=== PATIENT | male | born 1970 | race Caucasian/White ===

== ENCOUNTER 2024-08-31 12:02 | Emergency (ER) | payer OTHER, SELFPAY ==
--- NOTE | 2024-08-31 12:06 | ED_ITS ---
HPI - General Adult General Chief complaint: Dizziness Stated complaint: Dizzy Time Seen by Provider: 08/31/24 12:32 Mode of arrival: ambulatory Limitations: no limitations History of Present Illness HPI narrative: 53 year old male presents with concern for 3 day history of lightheadedness and diarrhea. He reports he just moved here from [place] 2 weeks ago, he had a thyroidectomy 1 month ago. He has been on Synthroid. He reports he took his 1st dose of Cymbalta 3 days ago and the symptoms started so he did not take anymore Cymbalta. He reports he started having loose stools about 4 times a day. He denies nausea, vomiting, fever, upper respiratory symptoms. MD complaint: Lightheadedness Related Data Home Medications ?Medication ?Instructions ?Recorded ?Confirmed ?Last Taken ?Type duloxetine 60 mg capsule,delayed mg PO 08/31/24 Unknown History release levothyroxine 125 mcg tablet mcg 08/31/24 Unknown History methocarbamol 500 mg tablet mg 08/31/24 Unknown History Allergies Allergy/AdvReac Type Severity Reaction Status Date / Time Penicillins Allergy Unknown Unknown Verified 08/31/24 12:24 Review of Systems Review of Systems: CONSTITUTIONAL: Report malaise, chills, sweats. Denies fever. EYES: Denies visual changes, redness, or discharge. ENT: Denies rhinorrhea, congestion, sinus pain, otalgia or sore throat. CARDIOVASCULAR: Denies chest pain, palpitations, or edema. RESPIRATORY: Denies cough or dyspnea. GASTROINTESTINAL: Denies abdominal pain, nausea, vomiting. Reports loose stools GENITOURINARY: Denies dysuria or hematuria. SKIN: Denies rash or itching. MUSCULOSKELETAL: Denies back pain, joint pain, or myalgia. Reports chronic neck pain NEUROLOGIC: Denies numbness, weakness, or headache. Reports lightheadedness PSYCHIATRIC: Denies anxiety or depression. All systems reviewed & are unremarkable except as noted in HPI and below PMFSH Comments At time of signature, agree with nursing past medical, surgical, social and family history. There is no relevant family history pertinent to the presenting complaint Exam Narrative: GENERAL: Nontoxic-appearing, well-nourished, and in no acute distress. HEAD: Normocephalic, atraumatic. EYES: PERRLA, sclera clear, and EOMI. ENT: Nares clear. Mucous membranes moist. NECK: Supple. CHEST: No respiratory distress. Speaks in full sentences. HEART: Regular rate and rhythm. EXTREMITIES: Normal range of motion. No edema. Normal strength and sensation. SKIN: Warm, dry, no visible rash. NEURO: Alert and oriented x3. PSYCH: Normal mood and affect Course Course Emergency Course: Patient is aware of, understands and agrees to transfer to emergency depart. Patient agrees to proceed directly to the emergency department. Portions of this record may have been created with voice recognition software Level of Care: Express Care Visit Vital Signs Vital signs: Reviewed. Transfer Transfered to: [facility] Transportation: Other (Private vehicle) Transfer rationale: Lightheadedness Transfer comments: [facility] Medical Decision Making MDM Narrative Medical decision making narrative: The patient was evaluated by myself in the express care. History is obtained from patient who is an independent historian and physical exam was performed. ? Exam findings show no acute concerns or changes; patient is non-toxic appearing and is in no distress. ? Critical Care Time Critical Care Time Critical Care Time: No Discharge Plan Discharge Clinical Impression: Lightheadedness Patient Disposition: Acute Care Hospital Condition: Stable Patient Language: Algerian Follow-up/Referrals: UNKNOWN,DOCTOR [Non-Staff] - Time of Disposition: 12:50
--- OUTSIDE RECORDS SUMMARY | 2024-08-31 12:09 | XMS_ITS | Data Portability ---
Author Organization [place] - [facility], [facility] Address [address] [facility] [address] [place] [address] Assessment Encounter Date Assessment Date Assessment LastModified by Organization Details LastModified Time 01/09/2021 01/09/2021 x-ray images of the cervical spine 3 views obtained at [facility] on 01/05/2021 were reviewed and interpreted by me, demonstrating: straightening of the cervical lordosis, C6-C7 disc space narrowing x-ray images of the left shoulder 3 views obtained at [facility] on 01/05/2021 were reviewed and interpreted by me, demonstrating: unremarkable x-ray images of the left elbow 3 views obtained at [facility] on 01/05/2021 were reviewed and interpreted by me, demonstrating: unremarkable Assessment: 50-year-old male who presents with new complaint of neck pain radiating down the left shoulder and upper extremity with paresthesias in the hand. Examination reveals decreased left triceps reflex and decreased sensation to light touch in the left hand. He has been treated with a course of oral steroids, intramuscular steroid injection, diclofenac, naproxen, cyclobenzaprine, and hydrocodone without significant benefit. There appears to be an acute cervical radiculopathy. Prior treatments: Intramuscular steroid injection, oral steroid taper, diclofenac, cyclobenzaprine, naproxen, hydrocodone Plan: 1. referral to physical therapy 2. home exercise program 3. MRI cervical spine to evaluate for acute disc herniation and source of radiculopathy; there are neurologic deficits noted on physical exam 4. start Medrol Dosepak followed by celecoxib as needed, refill cyclobenzaprine, change hydrocodone to tramadol Imaging results were reviewed with the patient. Medication options were discussed in detail, including appropriate indications, contraindications , risks, and adverse effects. All questions were answered. Follow-up: after MRI; patient indicates he would like to follow-up with a physician at the [place] office Additional Clinical Information: This note was dictated using voice recognition software. Portions of the note may contain grammatical errors due to voice recognition and auto-correct technology. Variances in spelling and vocabulary are possible but unintentional, and not all errors may be seen before the note is closed. Any admissions advisor errors would not constitute a change in patient care. Not available 01/09/2021 11:39:51 01/19/2021 01/19/2021 MRI images of th e cervical spine without contrast obtained at [facility] on 01/12/2021 were reviewed and interpreted by me, demonstrating: significant disc herniation at C6-C7 with resulting in severe left foraminal stenosis and impingement of the left C7 nerve root see full report for further details Assessment: 50-year-old male who returns with unchanged neck pain radiating down the left shoulder and upper extremity with paresthesias in the hand. since last visit, he completed Medrol Dosepak with no significant improvement. MRI was completed, as above. History in brief from prior encounters: Examination reveals decreased left triceps reflex and decreased sensation to light touch in the left hand. He has been treated with a course of oral steroids, intramuscular steroid injection, diclofenac, naproxen, cyclobenzaprine, and hydrocodone without significant benefit. There appears to be an acute cervical radiculopathy. Prior treatments: Intramuscular steroid injection, oral steroid taper x2, diclofenac, cyclobenzaprine, naproxen, hydrocodone, Tramadol, celecoxib Plan: 1. proceed with physical therapy 2. C7-T1 interlaminar epidural steroid injection; discussed with him that given the size of the disc herniation, he may not achieve lasting benefit from this and may eventually need surgery 3. referral to spine surgeon for consultation Imaging results were reviewed with the patient. Medication options were discussed in detail, including appropriate indications, contraindications , risks, and adverse effects. All questions were answered. Follow-up: 2 weeks after injection Additional Clinical Information: This note was dictated using voice recognition software. Portions of the note may contain grammatical errors due to voice recognition and auto-correct technology. Variances in spelling and vocabulary are possible but unintentional, and not all errors may be seen before the note is closed. Any admissions advisor errors would not constitute a change in patient care. Not available 01/19/2021 15:44:56 02/03/2021 02/03/2021 PROCEDURE: CERVICAL INTERLAMINAR EPIDURAL STEROID INJECTION AT C7-T1 (21250) PRE-OP DIAGNOSIS: CERVICAL RADICULOPATHY PRE-OP DIAGNOSIS: CERVICAL RADICULOPATHY INDICATION: SIGNIFICANT PAIN UNRESPONSIVE TO CONSERVATIVE MEASURES PROCEDURE IN DETAIL: The patient was made aware of the procedure, how it was to take place and any potential adverse reactions including, but not limited to, a temporary motor block/weakness, bleeding, infection, and allergic reaction. The patient was consented verbally and in writing regarding the above. The patient was transported into the interventional procedure room of the [facility] and asked to lie on the table in prone position. The skin was then prepped, draped, and anesthetized in the usual sterile manner using 3 cc of 1% lidocaine. Using fluoroscopic guidance, the point of skin overlying the interlaminar space specified above was marked. Using fluoroscopic guidance, a 20-gauge 3 inch Tuohy needle was directed towards the interlaminar space mentioned above. Eupb-io-wikaorkyd e was achieved using a syringe containing normal saline. Multiplanar radiographs were used to verify appropriate needle tip position. A small amount of Isovue 200-M was used to obtain a contrast epidurogram. Once appropriate contrast flow was confirmed under live fluoroscopy, a mixture containing 1 cc Dexamethasone Sodium Phosphate (10 mg/cc), 1 cc dexamethasone (4 mg/cc), and 2 cc of 0.9% normal saline was slowly injected. The needles were removed, band-aids were applied and the patient was transported to the recovery area where vital signs were monitored for approximately 15 minutes or until stable. X-RAYS: A/P and contralateral oblique views were obtained showing the needle tip to be in the appropriate interlaminar space. The contrast flowed into the epidural space indicative of successful epidurogram. PLAN: The patient will follow-up with his referring physician in 2 weeks. Not available 02/03/2021 19:10:55 Plan of Treatment Reminders Order Date Submit Date Provider Last Modified By Organization Details Last Modified Time Details Appointments None record ed. Lab None record ed. Referral physic al therap ist referr al - This referr al for rehabi litati on june e treatm ent perfor med by an ATC, OT, PT, or STEEPING PRESS OPERATOR in accord ance with their state practi ce act. 2020 [email or web address] [facility], [address], [place], [address], 17:46:06 physic al therap ist referr al 2020 [email or web address] [facility] [address], Dirk Martínez, [place], [address], 13:52:07 Procedures epidur al steroi d inject ion, cervic al interl aminar (PROC) - C7-T1 ILESI; schedu le first availa ble betwee n [facility] 2020 021 [email or web address] [facility], [address] , [place], [address], 10:19:32 Surgeries None record ed. Imaging MRI, cervic al spine, w/o contra st 2020 [email or web address] [facility], Dirk Martínez, [place], [address], 14:25:41 Medication Orders Medrol (Lavelle) 4 mg tablet s in a dose pack 2020 [id number], [address] [place], [address], 11:24:33 tramad ol 50 mg tablet 2020 [id number], [address] [place], [address], 11:24:34 cyclob enzapr ine 5 mg tablet 2020 021 [id number], [address] [place], [address], 11:24:32 celeco xib 200 mg capsul e 2020 021 [id number], [address] [place] [place], [address], 11:24:32 Patient TargetsNo targets recorded. Patient Instructions Encounter Date Encounter Id Patient Instructions Last Modified By Organization Details Last Modified Time 01/09/2021 [id number] pinched nerve in the neck: care instructions Not available 01/09/2021 11:24:28 neck: exercises Not available 01/09/2021 11:24:28 Reason for Referral Physical Therapist Referral for Cervical radiculopathy Referring Physician: Eamon Kong, [facility] ([phone] Encounter Date: 01/09/2021 Physical Therapist Referral for Cervical radiculopathy This referral for rehabilitation may include treatment performed by an ATC, OT, PT, or STEEPING PRESS OPERATOR in accordance with their state practice act. Referring Physician: Eamon Kong [facility] Encounter Date: 01/19/2021 Results Created Date Observation Date Name Description Value Unit Range Abnormal Flag Note LastModifiedBy Organization Detail LastModifiedTime 01/13/20 21 01/12/2021 cervi fide spine [mric spwoc ] Patien t Name: BRITTNEE MERLYNKaro Torres Date of : 1970 Locati on: [facility] Cervic al Spine [MRI pwoC] HISTOR Y: Cervic al pain and radicu lopath y. COMPAR JEAN: STUDIE S: None availa ble. TECHNI QUE: Multip lanar sequen stefan with T1, interm ediate , T2, and/or T2*-we ighted image contra st. FINDIN GS: GENERA L: Mild cervic al disc degene ration is presen t with modera te loss of disc height at C6-7. A slight upper cervic al kyphos is is presen t and a minima l cervic othora cic curvat ure convex left is also eviden t. No signs of fractu re or osseou s neopla sm are identi fied. C1-2 AND CRANIO CERVIC AL JUNCTI ON: Unrema rkable . C2-3: No disc hernia tion, centra l stenos is, or forami nal stenos is. C3-4: A mild disc bulge causes mild ventra l cord flatte shelby but no signif icant centra l stenos is. The neural forami na are patent bilate rally. C4-5: A minima l disc bulge is presen t. C5-6: A mild disc bulge is noted. The spinal canal remain s normal in calibe r with no mass effect upon the cord identi fied. Uncove rtebra l joint hypert rophy result s in mild bilate ral forami nal narrow ing. C6-7: A modera te left subart icular and forami nal disc extrus ion with slight caudal migrat ion is presen t. The hernia taina disc imping es upon the left C7 nerve root and fills the medial left neural forame n. The spinal canal remain s within normal limits in calibe r. C7-T1: No disc hernia tion, centra l stenos is, or forami nal stenos is. CORD AND INTRAS JESSICA: No cervic al cord or intras jessica lesion s. IMPRES IRWIN: A modera te left subart icular /jaison inal disc extrus ion at C6-7 imping es upon the left C7 nerve root.A mild disc bulge at C3-4 causes mild ventra l cord flatte shelby but no signif icant centra l canal stenos is.Mil d upper cervic al kyphos is and minima l cervic othora cic curvat ure convex left. Electr onical ly signed by: Trae Barnard M.D. (Jan 12, 2021 16:37: 05 CT) [address], [place], [address], 01/19/2021 17:03:02 01/14/20 21 01/05/2021 XR, cervi fide spine , 2 or 3 view No observ ation record ed. BARCODE Not Available 2020 08:28:24 Result Notes None recorded. Problems Name Problem SNOMED Code Status Onset Date Resolution Date Notes Provider Name and Address Organization Details Recorded Time Cervical radiculopat hy 64636315 Active 2020 Eamon Kong MD [address], [place], [address] , [facility] 11:13:20 Problem Notes None recorded. Medical Equipment None Reported. Allergies Allergen ID Allergen Name Allergen Category Reaction Reaction Severity Criticality Documentation Date Start Date Code Code System Note Provider Name and Address Organization Details Recorded Time 125203 Product containin g penicilli n (product) medicatio n Not available Not available Not available 01/08/20212020 59603 8001 SNOMED Not Available Dash Scheduling by [employer] 13:21:22 Medications Name Sig Start Date Stop Date Status Note LastModified by Organization Details LastModified Time celecoxib 200 mg capsule TAKE 1 CAPSULE TWICE A DAY BY ORAL ROUTE NEEDED FOR 30 DAYS. active Not Available Not Available No t Available Medrol (Lavelle) 4 mg tablets in a dose pack Take 1 dose pk by oral route as directed . 2020 active Not Available Not Available Not Avai lable tramadol 50 mg tablet Take 2 tablets twice a day by oral route as needed for 15 days. 2020 active Not Available Not Available Not Avai lable cyclobenzaprine 5 mg tablet Take 1-2 tablets by mouth nightly as needed 2020 active Not Available Not Available Not Avai lable hydrocodone-noam taminophen 2020 active Not Available Not Available Not Avai lable dexamethasone 2020 active Not Available Not Available Not Avai lable cyclobenzaprine 2020 active Not Available Not Available Not Avai lable Vitals Date Recorded Body height Body mass index (BMI) Body weight Provider Name and Address Organization Details Last Updated DateTime 01/09/2021 182.88 cm 26 kg/m2 95055.74 g Chandni [facility] 01/09/2021 11:01:37 Date Recorded Body height Body mass index (BMI) Body weight Provider Name and Address Organization Details Last Updated DateTime 01/19/2021 182.88 cm 26 kg/m2 76001.74 g Chandni [facility] 01/19/2021 15:22:59 Social History Question Answer Notes LastModified by Organizat ion Details LastModified Time Tobacco Smoking Status Former Smoker Chandni Lerma [facility] 01/09/2021 11:01:51 How Much Tobacco Do You Chew? 1/day [email or web address] Information not available 01/09/2021 Which Illicit Or Recreational Drugs Have You Used? No [email or web address] Information not available 01/09/2021 Have You Ever Served In The [employer] [place]? No [email or web address] Information not available 01/09/2021 What Is Your Relationship Status? [email or web address] Information not available 01/09/2021 At What Age Did You Start Smoking Tobacco? 17 [email or web address] Information not available 01/09/2021 How Much Tobacco Do You Smoke? No [email or web address] Information not available 01/09/2021 Sex: Unknown Functional Status Question Answer Note LastModified by Organization D etails LastModified Time What is your level of alcohol consumption? Moderate [email or web address] Information not available 01/09/2021 Mental Status None recorded. Family History Relationship Description Onset Age of this Age Resolved Age Notes LastModified by Organization Details LastModified Time Father Family history of malignant neoplasm 73 74 [email or web address] Not available 11:01:51 Medical History Condition Response High Cholesterol Y Rheumatoid Arthritis Y Asthma Y Past Encounters Encounter ID Performer Location Encounter Start Date Encounter Closed Date Diagnosis/Indication Diagnosis SNOMED-CT Code Diagnosis ICD10 Code Diagnosis Note [id number] Eamon Kong MD [facility] [address] 01/09/2021 10:13:44 01/09/2021 11:27:13 Cervical radiculopathy 67317794 M54.12 [id number] Eamon Kong MD [facility] [address] [place] [address] 01/19/2021 14:37:10 01/19/2021 15:49:29 Cervical radiculopathy 66910700 M54.12 [id number] Eamon Kong MD [facility] [address] [place] [address] 02/03/2021 06:26:34 02/04/2021 08:05:22 Cervical radiculopathy 11890601 M54.12 Health Concerns Section Related Observation LastModified by Organization Detai ls LastModified Time None Recorded Concern Status LastModified by Organization Details LastModified Time None Recorded Advance Directives Directive None Recorded Payers Insurance Date Sequence Insurance Name Policy Number Policy Donovan Covered Member ID Donovan Member ID Guarantor Name 04/09/2024 1 [facility] [id number] Shantell Gamez [id number] Amadeo Gamez 04/09/2024 1 [facility] Amadeo Gamez [id number] Amadeo Gamez Notes Date Note Type Note Provider Name and Address Organization Details Recorded Time 1 text/html SpineReported bypatient.Complaint/Pro blem today:Major pain shoots through my neck down to left elbow and side, depending on what position my neck is in. Hurts more to sit down. Date of injury/accident/onset of problem:Date 01/03/2021 Symptoms (Select any that apply):Neck Pain The pain has been present for:6.0 days Indicate pain level:Pain level today: 8/10; Level of pain on worst day: 10/10 Is the pain:Comes and goes Is the pain:Sharp; Stabbing; Burning Does the pain go down the arms or legs?Yes: If Yes, select any that apply:; Pain goes down your left arm Is the pain worse when:sitting; lying down; in the morning Is the pain better when:standing Does the pain wake you up at night?Yes Signs and Symptomsexperience numbness in your right arm; experience numbness in you left arm; experience weakness in your left arm; none Medications:No Have you had physical therapy?No Have you had special needs caregiver?No Have you had Home Exercises?No Have you had injections for spinal pain?No Have you had spine surgery?no; Dr Swanson Tests you have had:x ray Injury: Did you have an injury to cause pain?No; Work Related? Have you had Neck Pain/Arm Numbness/Arm Weakness BEFORE this episode?Yes; If Yes, when? 5 years ago Have you had Back Pain/Leg Numbness/Leg Weakness BEFORE this episode?Yes; If Yes, when? 5 years ago Occupational History (select all that apply):Regular Duty; Occupation: Operations Specialist; Employer: [employer]; How long have you worked there? 1 monthMonths ___Years Chief complaint: neck pain, left arm pain Patient presents today for initial evaluation of the above complaint. He began having neck pain With symptoms in the right arm and hand about 4 to 5 weeks ago. He went to [facility] primary care and got an intramuscular steroid injection and oral steroid taper and those symptoms resolved. He does note that he has a history of right carpal tunnel syndrome so he has some degree of baseline right hand paresthesias. Then, about 1 week ago, he recurred with neck pain this time radiating down the left upper extremity with paresthesias in the left hand. He finds his pain to be severe and very debilitating. It makes it very difficult to sleep, use left arm, drive, find a comfortable position. he localizes the pain to the neck, left posterior shoulder, left posterior arm and elbow, and the entirety of the left hand. He went back to primary care earlier this week and underwent some x-rays and was prescribed Flexeril and hydrocodone. He has had some relief from these medications. He has not had certified caregiver or physical therapy since the symptoms began. He has not had a previous MRI of the cervical spine. He denies any past neck injuries. He denies any past neck problems injections, or surgeries. Medications for pain: Hydrocodone, Flexeril Eamon Kong MD [address], [place], [address], [facility] 01/09/2021 11:43:49 1 text/html Chief complaint: Neck pain, left arm pain Patient presents today for follow-up of the above complaint. Since last visit, the pain has stayed the same. since last visit, his pain is unchanged. He completed cervical MRI and is here today to discuss the results. He completed the Medrol Dosepak with no significant benefit. He continues to use tramadol, cyclobenzaprine, and celecoxib with modest relief. He has not yet started physical therapy. Medications for pain: Tramadol, cyclobenzaprine, celecoxib Eamon Kong MD [address], [place], [address], [facility] 01/19/2021 15:55:51
--- OUTSIDE RECORDS SUMMARY | 2024-08-31 12:09 | XMS_ITS | Patient Health Record ---
Author Organization [facility] Margret Address [address] [place] [address] Support Name Relationship Address Phone davemaribel Emergency Contact [address] [place] [phone] DELFINA BEAULIEU Guarantor Unknown [phone] Allergies Allergen (clinical drug ingredient) Drug/Non Drug Allergy documented on EMR Reaction Allergy Type Onset Date Status Penicillin Unknown Drug Allergy Active Reason For Referral No Information Medications Medication SIG (Take, Route, Frequency, Duration) Notes Start Date End Date Status Lexapro 10 MG 1 tablet Orally Once a day for 30 days 12/28/2021 Active Albuterol Sulfate HFA 108 (90 Base) MCG/ACT 2 puff as needed Inhalation every 6 hrs for 30 days Not-Taking Flovent HFA 44 MCG/ACT 1 puff Inhalation Twice a day for 30 days Not-Taking Zithromax 250 MG 2 tablet on the , then 1 tablet daily for 4 days Orally Once a day for 5 day(s) Not-Taking Diclofenac Sodium 50 MG 1 tablet as need ed Orally Twice a day prn Active Naproxen 500 MG 1 tablet with food o r milk as needed Orally every 12 hrs prn Not-Taking Ibuprofen 800 MG 1 tablet with food o r milk as needed Orally every 8 hrs prn Not-Taking Gabapentin 300 MG 1 capsule as needed Orally three times a day for 10 days 10/06/2021 Not-Taking dexAMETHasone 6 MG 0.5 tablet Orally every 12 hrs for 5 days Not-Taking Zinc 100 MG 1 tablet Orally Once a day for 30 day(s) Not-Taking Ergocalciferol 50 MCG (2000 UT) 1 tablet Orally BID for 30 day(s) Not-Taking Social History Alcohol Screen (Audit-C) Question Answer Notes Did you have a drink contain ing alcohol in the past year? Yes How often did you have a dri nk containing alcohol in the past year? Monthly or less (1 point) How many drinks did you have on a typical day when you were drinking in the past year? 1 or 2 drinks (0 point) How often did you have 6 or more drinks on one occasion in the past year? Never (0 point) Points 1 Interpretation Negative Problems Problem Type SNOMED Code ICD Code Onset Dates Problem Status W/U Status Risk Notes Problem 91744666 Reactive depression (F32.9) Active confirmed Problem 113983850046318 Carpal tunnel syndrome of right wrist (G56.01) Active confirmed Plan Of Treatment Pending Test Test Name Order Date Influenza A with direct optical observat ion 04/23/2020 X ray : Chest 2 View: AP, Lateral 2020 Influenza B with direct optical observat ion 04/23/2020 COVID19 Rapid Nasal Swab 04/28/2020 COVID19 Rapid Nasal Swab 04/23/2020 Insurance Providers Payer Name Payer Address Payer Phone Subscriber Number Group Number Insured Name Patient Relationship to Insured Coverage Start Date Coverage End Date [employer]BS PPO [address] [place] [address] [phone] [id number] DELFINA BEAULIEU Self - patient is the insured Medications Administered Medication Instructions Date of Administration Dosage Notes Cleocin 300 mg, IM 04/23/2020 300 mg Decadron 8mg 10/06/2021 8 mg DEX 04/23/2020 8 mg Solumedrol 125 mg 12/28/2021 125 mg Toradol 60mg 04/23/2020 60 mg Toradol 60mg 10/06/2021 60 mg Medical (General) History Medical History History ICD Code Arthritis carpal tunnel Surgical History Surgery Date(Month/Year) denies Hospitalization History Reason Date(Month/Year) denies
--- OUTSIDE RECORDS SUMMARY | 2024-08-31 12:10 | XMS_ITS | Clinical Summary ---
Author Organization [facility] Address [address] [place] [address] Care Team Providers Care Marine Fitter Name Role Phone Tamela Smith MD Primary Care Provider [phone] Allergies Active Allergy Reactions Criticality Noted Date Comments Latex Rash 07/25/2024 WITH BANDAIDS Penicillins Other (See Comments) 01/19/2014 UNKNOWN REACTION CHILDHOOD ALLERGY Medications albuterol 90 mcg/actuation Inhl inhaler 2 puff as needed Inhalation every 6 hrs for 30 days Active DULoxetine (CYMBALTA) 60 MG capsule Take 1 capsule by mouth in the morning. 60 capsule 5 Active Additional Information Patient not taking.Reported on 08/02/2024 ibuprofen (MOTRIN) 800 MG tablet Take 1 tablet by mouth as needed for Pain. Take with food. N Active calcium carbonate (TUMS ULTRA) 400 mg calcium (1,000 mg) Chew Take 2,000 mg by mouth in the morning and 2,000 mg before bedtime. 200 each 5 Active levothyroxine (SYNTHROID) 125 MCG Oral tablet Take 1 tablet by mouth in the morning. 100 tablet 5 11/04/19 25 Active HYDROcodone-noam taminophen (NORCO) 5-325 mg per tablet Take 1 tablet by mouth every 6 (six) hours as needed. 28 tablet 5 08/06/19 25 Additional Information Patient not taking.Reported on 08/02/2024 acetaminophen-c odeine (TYLENOL #3) 300-30 mg per tablet Take 1 tablet by mouth every 4 (four) hours as needed for Pain. 15 tablet 08/06/19 25 Active Problems Problem Noted Date Diagnosed Date Thyroid cancer 07/05/2024 Encounters Date Type Department Care Team Description 08/02/2024 8:30 AM EDT Office Visit Surgery Monisha BenitezChristiana [address] [phone] Mario Ramey MD Thyroid cancer (HC) (Primary Dx) 07/25/2024 8:05 AM EDT Anesthesia Event [facility] [address] [place] [phone] Rolando Rose MD Ross, Cicely Angela, NP 07/25/2024 8:00 AM EDT - 07/25/2024 11:39 AM EDT Surgery [facility] [address] [place] [phone] Mario Ramey MD THYROIDECTOMY, TOTAL OR SUBTOTAL, WITH LIMITED NECK DISSECTION, FOR MALIGNANT NEOPLASM 07/25/2024 5:45 AM EDT - 07/26/2024 12:30 PM EDT Hospital Encounter [address] [phone] Mario Ramey MD Discharge Disposition: Home or Self Care 07/25/2024 Travel 07/24/2024 10:00 AM EDT Pre-Admission Testing [facility] Pre-Admission Testing [address] [place] [phone] Mario Ramey MD Preop testing (Primary Dx) 07/23/2024 Travel 07/09/2024 Results Follow-Up Surgery Louis Benitez [address] [phone] Mario Ramey MD Ultrasound head neck soft tissue 07/07/2024 10:45 AM EDT - 07/07/2024 11:59 PM EDT Hospital Encounter [facility] [address] [place] [phone] Mario Ramey MD Thyroid cancer (HC) Discharge Disposition: Home or Self Care 07/07/2024 Travel 07/05/2024 9:45 AM EDT Office Visit [address] [phone] Mario Ramey MD Thyroid cancer (HC) (Primary Dx) 07/05/2024 Transcribed Order [address] [phone] Mario Ramey MD Thyroid cancer (HC) (Primary Dx) 07/03/[address] [phone] Mario Ramey MD 06/11/2024 Travel from Last 3 Months Immunizations Immunization Administration Dates Next Due Td (CVX=09) 01/19/2014 Social History Tobacco Use Types Packs/Day Years Used Date Smoking Tobacco: Former Cigarettes Smokeless Tobacco: Current Chew Tobacco Cessation:Ready to Q uit: Not Asked; Counseling Given: Not Answered Comments:35 YEARS AGO - CIGARETTE CHEW TOBACCO - 1 CAN PER DAY Alcohol Use Standard Drinks/Week Comments Yes 0 (1 standard drink = 0.6 oz pur e alcohol) 12 CANS PER WEEK Humiliation, Afraid, Rape, and Kick questionnair e Answer Date Recorded Within the last year, have y ou been afraid of your partner or ex-partner? No 07/25/2024 Within the last year, have y ou been humiliated or emotionally abused in other ways by your partner or ex-partner? No Within the last year, have y ou been kicked, hit, slapped, or otherwise physically hurt by your partner or ex-partner? No 07/25/2024 Within the last year, have y ou been raped or forced to have any kind of sexual activity by your partner or ex-partner? No 07/25/2024 AUDIT-C Answer Date Recorded Q1: How often do you have a drink containing alc ohol? 2-3 times a week 07/25/2024 Q2: How many drinks containi ng alcohol do you have on a typical day when you are drinking? 3 or 4 07/25/2024 Q3: How often do you have si x or more drinks on one occasion? Less than monthly 07/25/2024 Sex and Gender Information Value Date Recorded Sex Assigned at Male 07/02/2024 4:56 PM EDT Legal Sex Male 8:02 PM EST Gender Identity Male 07/02/2024 4:56 PM EDT Sexual Orientation Not on file Last Filed Vital Signs Vital Sign Reading Time Taken Comments Blood Pressure 141/94 08/02/2024 10:08 AM EDT Pulse 94 08/02/2024 10:08 AM EDT Temperature 36.8 C (98.2 F) 08/02/2024 10:08 AM EDT Respiratory Rate 12 08/02/2024 10:08 AM EDT Oxygen Saturation 95% 07/26/2024 11:50 AM EDT Inhaled Oxygen Concentration - - Weight 78 kg (172 lb) 08/02/2024 10:08 AM EDT Height 180.3 cm (5' 11) 08/02/2024 10:08 AM EDT Body Mass Index 23.99 08/02/2024 10:08 AM EDT Plan of Treatment Health Maintenance Due Date Last Done Comments CT Colonography 1970 Cologuard (FIT-DNA every 3 years) 1970 Colonoscopy 1970 Colorectal Cancer Screening 1970 FOBT/iFOBT (every 1 year) 1970 Hepatitis C Screening 1970 Sigmoidoscopy 1970 Hepatitis B Vaccine (1 of 3 - 19+ 3-dose series) 12/06/1990 Pneumococcal Vaccine 50+ yea rs (1 of 1 - PCV) 12/06/2021 Shingles Vaccine (1 of 2) 12/06/2021 COVID-19 Vaccine (2 - 2023-2 5 season) 2023 08/21/2020 TdaP/Td Vaccine (3 - Td or Tdap) 01/20/2024 01/19/2014, 10/01/2009 Influenza Vaccine (#1) 2024 03/07/2014 Hepatitis A Vaccine Aged Out No longe r eligible based on patient's age to complete this topic Meningococcal ACWY Vaccine Aged Out N o longer eligible based on patient's age to complete this topic Procedures Procedure Name Priority Date/Time Associated Diagnosis Comments CALCIUM Timed 07/26/2024 7:07 AM EDT PLATELET COUNT Routine 07/25/2024 3:17 PM EDT EXTRA PST LITHIUM Routine 07/25/2024 3:1 6 PM EDT SURGICAL PATHOLOGY EXAM Routine 07/25/2024 11:26 AM EDT [place] THYROIDECTOMY W LTD NCK DISECT 07/25/2024 8:05 AM EDT Thyroid cancer (HC) Special Needs CPT: [id number] NUMBER [id number] AND SOAP 07/24 @ 10 AMBS DOS POCT GLUCOSE Routine 07/25/2024 6:45 AM EDT BASIC METABOLIC PANEL Routine 07/24/2024 11:21 AM EDT Preop testing CBC W/PLAT AUTOMATED DIFF Routine 07/24/2024 11:21 AM EDT Preop testing US HEAD NECK SOFT TISSUE STAT 07/07/2024 12:13 PM EDT Thyroid cancer (HC) from Last 3 Months Results * Calcium in AM (07/26/2024 7:07 AM EDT) Calcium 10.0 8.6 - 10.3 mg/dL 07/26/2024 7:40 AM EDT [facility] Blood (Blood, Venous) Venipuncture / Unknown 07/26/2024 7:07 AM EDT 07/26/2024 7:14 AM EDT us Mario Ramey MD LAB BLOOD ORDERABLES Final Resu lt [facility] [address] [place], [place] [id number] * Platelet count (07/25/2024 3:17 PM EDT) Platelets 297 130 - 400 10*3/ L 07/25/2024 3:30 PM EDT [facility] Blood (Blood, Venous) Venipuncture / Unknown 07/25/2024 3:17 PM EDT 07/25/2024 3:25 PM EDT Mario Ramey MD LAB BLOOD ORDERABLES Final Resu lt Performing Organization Address [facility] Co de Phone Number [facility] [address] [place] [phone] * Extra PST [place] (07/25/2024 3:16 PM EDT) Pathologist [facility] EXTRA TUBE Hold for add-ons. 07/25/2024 5:00 PM EDT [facility] Comment:Auto resulted. Blood (Blood, Venous) Venipuncture / Unknown 07/25/2024 3:16 PM EDT 07/25/2024 3:26 PM EDT Mario Ramey MD LAB BLOOD ORDERABLES Final Resu lt Performing Organization Address [facility] Phone Number [facility] [address] [place] [phone] * Surgical Pathology Exam (07/25/2024 11:26 AM EDT) Pathologist [facility] Case Report Surgical Pathology Case: [id number] Authorizing Provider: Mario Ramey MD Collected: 07/25/2024 1126 Ordering Location: [facility] Received: 07/25/2024 1351 [facility] Pathologist: Ravin Ayala MD Specimens: A) - Thyroid, Thyroid gland, double stitch santiago right superior pole, single stitch santiago left superior pole B) - Thyroid, Left strap muscle over tumor C) - Thyroid, Biopsy left central necl content 07/27/2024 12:51 PM EDT [facility] Final Diagnosis A. Thyroid gland, total thyroidectomy: - Encapsulated papillary carcinoma of thyroid, classic type. - Tumor measures 2.5 cm maximum dimension. - All surgical margins are negative for tumor. - Two lymph nodes are negative for metastatic carcinoma. - See synoptic summary below. B. Designated left strap muscle over tumor, excision: - Unremarkable skeletal muscle; negative for malignancy. C. Designated left central neck contents, excision: - Mature adipose tissue; no lymph nodes or malignancy identified. 07/27/2024 12:51 PM EDT [facility] at [address] Jean Claude Cotton concurring. 07/27/2024 12:51 PM EDT [facility] Clinical Information Thyroid cancer (HC) [C73] Thyroid cancer (HC) [C73] 07/27/2024 12:51 PM EDT [facility] Microscopic Description A.-C. Microscopic examination performed. 07/27/2024 12:51 PM EDT [facility] Gross Description A. The specimen is received in formalin labeled with the patient's name, MRN and designated thyroid gland. Consists of a 10.0 g, oriented total thyroidectomy specimen measuring, right lobe: 4.1 x 2.2 x 0.6 cm, left lobe 4.1 x 2.5 x 1.1 cm and presumed isthmus 1.5 x 1.0 x 0.2 cm. The specimen external surface is kwan-brown, roughened and inked as follows: Right lobe: Blue Left lobe: Green Isthmus: [place] Sectioning of the right lobe and isthmus reveals a kwan-brown unremarkable thyroid parenchyma. Sectioning of the left lobe, involving the middle-inferior pole is a 2.5 x 1.6 x 1.1 cm encapsulated kwan-brown to pink soft nodule that measures 0.1 cm from the green inked margin. The remaining left lobe parenchyma is kawn-brown and unremarkable. Customer Quality Specialist sections are submitted as follows: A1-A2: Right lobe A3: Isthmus submitted entirely A4-A8: Left lobe nodule submitted entirely A9: Uninvolved left lobe parenchyma B. The specimen is received in formalin labeled with the patient's name, MRN and designated left strap muscle over tumor. Consists of a 1.1 x 0.6 x 0.4 cm irregular portion of kwan-brown rubbery tissue. The specimen is sectioned to reveal a kwan-brown homogenous surface and submitted entirely into cassette B1. C. The specimen is received in formalin labeled with the patient's name, MRN and designated biopsy left central neck contents. Consists of a 2.0 x 0.6 x 0.4 cm irregular portion of kwan-yellow adipose tissue. Sectioning reveals a kwan-brown lobulated surface and submitted entirely into cassette C1. 07/27/2024 12:51 PM EDT [facility] Synoptic Report THYROID GLAND THYROID GLAND - All Specimens 8th Edition - Protocol posted: 05/12/2022 CLINICAL Predisposing Condition(s): Mass SPECIMEN Procedure: Total thyroidectomy TUMOR Tumor Focality: Unifocal Tumor Characteristics: Tumor Site: Left lobe Tumor Size: Greatest Dimension (Centimeters): 2.5 cm Histologic Tumor Types and Subtypes: : Papillary carcinoma, encapsulated classic subtype Tumor Proliferative Activity: Mitotic Rate: Less than 3 mitoses per 2mm2 Tumor Necrosis: Not identified Angioinvasion (vascular invasion): Not identified Lymphatic Invasion: Not identified Perineural Invasion: Not identified Extrathyroidal Extension: Not identified Margin Status: All margins negative for carcinoma Distance from Invasive Carcinoma to Closest Margin: Less than 1 mm REGIONAL LYMPH NODES Regional Lymph Node Status: : All regional lymph nodes negative for tumor Number of Lymph Nodes Examined: 2 Arthur Level(s) Examined: Level pTNM CLASSIFICATION (AJCC 8th Edition) Reporting of pT, pN, and (when applicable) pM categories is based on information available to the pathologist at the time the report is issued. As per the AJCC (Chapter 1, 8th Ed.) it is the managing physician s responsibility to establish the final pathologic stage based upon all pertinent information, including but potentially not limited to this pathology report. pT Category: pT2 pN Category: pN0a ADDITIONAL FINDINGS Additional Findings: Thyroiditis: Focal lymphocytic thyroiditis 07/27/2024 12:51 PM EDT [facility] Embedded Images 07/27/2024 12:51 PM EDT [facility] Tissue (Thyroid) 07/25/2024 11:26 AM EDT 07/25/2024 1:51 PM EDT Comment:Thyroid cancer (HC) [C73] Tissue (Thyroid) 07/25/2024 11:28 AM EDT 07/25/2024 1:51 PM EDT Comment:Thyroid cancer (HC) [C73] Tissue (Thyroid) 07/25/2024 11:29 AM EDT 07/25/2024 1:51 PM EDT Comment:Thyroid cancer (HC) [C73] Mario Ramey MD PATHOLOGY/CYTOLOGY ORDERABLES F inal Result Performing Organization Address City/[facility]/ZIP Co de Phone Number [facility] [address] [place] [address] * POCT Glucose (07/25/2024 6:45 AM EDT) [facility] POC Glucose 100 74 - 100 mg/dL 07/25/2024 6:46 AM EDT [facility] Sample Type VENOUS 07/25/2024 6:46 AM EDT [facility] Capillary Blood 07/25/2024 6 :45 AM EDT 07/25/2024 6:45 AM EDT Mario Ramey MD POINT OF CARE TEST ORDERABLES F inal Result Performing Organization Address City/[facility] Co de Phone Number [facility] [address] [place] [address] * (ABNORMAL) CBC auto differential (07/24/2024 11:21 AM EDT) [facility] WBC 5.90 3.40 - 10.80 10*3/ L 07/24/2024 11:54 AM EDT [facility] RBC 4.71 4.40 - 5.80 10*6/ L 07/24/2024 11:54 AM EDT [facility] Hemoglobin 13.7(L) 14.0 - 18.0 g/dL 07/24/2024 11:54 AM EDT [facility] Hematocrit 40.4 38.0 - 49.0 % 07/24/2024 11:54 AM EDT [facility] MCV 85.8 80.0 - 96.0 fL 07/24/2024 11:54 AM [facility] MCH 29.2 26.0 - 35.0 pg 07/24/2024 11:54 AM [facility] MCHC 34.0 32.0 - 36.0 g/dL 07/24/2024 11:54 AM [facility] RDW 14.3 11.5 - 15.0 % 07/24/2024 11:54 AM [facility] Platelets 278 130 - 400 10*3/ L 07/24/2024 11:54 AM [facility] MPV 7.6 6.0 - 9.5 fL 07/24/2024 11:54 AM [facility] Neutrophils Relative 50.0 37.0 - 80.0 % 07/24/2024 11:54 AM [facility] Lymphocytes Relative 23.2 14.0 - 65.0 % 07/24/2024 11:54 AM [facility] Monocytes Relative 9.6 0.0 - 11.0 % 07/24/2024 11:54 AM [facility] Eosinophils Relative 15.5(H) 0.0 - 6.0 % 07/24/2024 11:54 AM [facility] Basophils Relative 1.7 % 07/24/2024 11:54 AM [facility] Neutrophils Absolute 2.9 1.8 - 7.8 10*3/ L 07/24/2024 11:54 AM [facility] Lymphocytes Absolute 1.4 1.0 - 2.0 10*3/ L 07/24/2024 11:54 AM [facility] Monocytes Absolute 0.6 0.3 - 1.0 10*3/ L 07/24/2024 11:54 AM [facility] Eosinophils Absolute 0.9(H) 0.0 - 0.5 10*3/ L 07/24/2024 11:54 AM [facility] Basophils Absolute 0.1 10*3/uL 07/24/2024 11:54 AM [facility] Blood (Blood, Venous) Venipuncture / Unknown 07/24/2024 11:21 AM EDT 07/24/2024 11:46 AM EDT us Dyllan Patterson MD LAB BLOOD ORDERABLES Final Result [facility] [address] [place] [address] * (ABNORMAL) Basic metabolic panel (07/24/2024 11:21 AM EDT) Sodium 139 136 - 145 mmol/L 07/24/2024 12:26 PM EDT [facility] Potassium 4.3 3.5 - 5.1 mmol/L 07/24/2024 12:26 PM [facility] Chloride 106 98 - 107 mmol/L 07/24/2024 12:26 PM [facility] CO2 28 21 - 31 mmol/L 07/24/2024 12:26 PM T [facility] Glucose 89 74 - 100 mg/dL 07/24/2024 12:26 PM T [facility] BUN 16 7 - 25 mg/dL 07/24/2024 12:26 PM [facility] Creatinine 1.08(H) 0.30 - 1.00 mg/dL 07/24/2024 12:26 PM [facility] Calcium 8.9 8.6 - 10.3 mg/dL 07/24/2024 12:26 PM EDT [facility] Anion Gap 9 7 - 14 07/24/2024 12:26 PM [facility] BUN/Creatinine Ratio 15 12 - 20 07/24/2024 12:26 PM [facility] GFR CKD-EPI >60 >=60 mL/min/1.7 3sq m 07/24/2024 12:26 PM T [facility] Blood (Blood, Venous) Venipuncture / Unknown 07/24/2024 11:21 AM EDT 07/24/2024 11:46 AM EDT us Dyllan Patterson MD LAB BLOOD ORDERABLES Final Result [facility] [address] [place] [address] * Ultrasound head neck soft tissue (07/07/2024 12:13 PM EDT) Anatomical Region Laterality Modality Head, Neck, C-spine Ultrasound 07/07/2024 12:2 6 PM EDT Impressions 07/07/2024 12:24 PM EDT 1. Dominant left thyroid nodule measures up to 1.9 cm. 2. Nonenlarged bilateral cervical chain lymph nodes, the majority of which demonstrate fatty nisha and are not pathologically enlarged by size criteria. Narrative 07/07/2024 12:24 PM EDT Patient Name: DELFINA BEAULIEU : 1970 Ordering Provider: MARIO RAMEY Date of Study: 07/07/2024 11:15 AM EXAM: US HEAD NECK SOFT TISSUE INDICATION: please evaluate the cervical lymph nodes II-VII bilaterally, concern for thyroid cancer on FNA;Malignant neoplasm of thyroid gland (HC) COMPARISON: 04/16/2024. TECHNIQUE: Grayscale imaging acquisition of the neck was performed. FINDINGS: Right thyroid lobe: 4.4 x 1.4 x 1.3 cm. Left thyroid lobe: 5.0 x 2.2 x 2.0 cm. Dominant left thyroid nodule: Isoechoic left thyroid nodule with internal punctate calcifications measures 1.8 x 1.9 x 1.7 cm, taller than wide. Nonenlarged bilateral cervical chain lymph nodes, the majority of which demonstrate fatty nisha. Procedure Note Clint Santillan MD - 08/17/2024 Patient Name: DELFINA BEAULIEU : 1970 Ordering Provider: MARIO RAMEY Date of Study: 07/07/2024 11:15 AM EXAM: US HEAD NECK SOFT TISSUE INDICATION: please evaluate the cervical lymph nodes II-VII bilaterally, concern for thyroid cancer on FNA;Malignant neoplasm of thyroid gland (HC) COMPARISON: 04/16/2024. TECHNIQUE: Grayscale imaging acquisition of the neck was performed. FINDINGS: Right thyroid lobe: 4.4 x 1.4 x 1.3 cm. Left thyroid lobe: 5.0 x 2.2 x 2.0 cm. Dominant left thyroid nodule: Isoechoic left thyroid nodule with internal punctate calcifications measures 1.8 x 1.9 x 1.7 cm, taller than wide. Nonenlarged bilateral cervical chain lymph nodes, the majority of which demonstrate fatty nisha. IMPRESSION: 1. Dominant left thyroid nodule measures up to 1.9 cm. 2. Nonenlarged bilateral cervical chain lymph nodes, the majority of which demonstrate fatty nisha and are not pathologically enlarged by size criteria. us Mario Ramey MD [facility] US ORDERABLES Final Result from Last [address] [place] [id number] [facility] Advance Directives * Full Code (Latest Code Status on File) Date Activated Date Inactivated Comments 07/25/2024 12:05 PM 07/26/2024 4:39 PM Care Teams Marine Fitter Relationship Specialty Start Date End Date Tamela Smith MD [address] [place] [address] PCP - General Family Medicine 06/11/24
--- OUTSIDE RECORDS SUMMARY | 2024-08-31 12:10 | XMS_ITS | Patient Health Record ---
Author Organization [facility] Address [address] [facility] [address] [place] [address] Care Team Providers Care Baling Machine Operator Name Role Phone Eugene HOOD, Hawk Primary Care Provider Bhargav Monk [phone] Reason For Referral No Information Medications Medication SIG (Take, Route, Frequency, Duration) Notes Start Date End Date Status Ellen Allergy oral *please review f or potential update for e-prescription and drug interaction check* Active NexIUM 40 MG Capsule Delayed Release take 1 capsule (40 mg) by oral route once daily for 30 days Oral 1; Duration: 30 10/20/2016 Active Lidocaine Viscous 2 % Solution use as directed by oral route every 3 hours as needed for 14 days Mouth/Throat 0.7486041753063930; Duration: 14 *please review for potential update for e-prescription and drug interaction check* 10/20/2016 Active Sucralfate oral *please review f or potential update for e-prescription and drug interaction check* Active Ondansetron oral *please review f or potential update for e-prescription and drug interaction check* Active Carafate 100 mg/mL Suspension take 10 milliliters (1 gram) by oral route 4 times per day on an empty stomach 1 hour before meals and at bedtime for 4 weeks Oral 4; Duration: 28 *please review for potential update for e-prescription and drug interaction check* 10/20/2016 Active Advil oral *please review f or potential update for e-prescription and drug interaction check* Active Lidocaine topical *please review f or potential update for e-prescription and drug interaction check* Active Social History Social History Additional Details Category Social Info Options Details Migrated Social History Migrated Social History Substance Use :: Alcohol :: Current some day :: note : 10/20/2016 - 12-18/can , Substance Use :: Tobacco :: Current every day :: note : 10/20/2016 - chewing tobacco 1 can/daily Plan Of Treatment No Information Insurance Providers Payer Name Payer Address Payer Phone Subscriber Number Group Number Insured Name Patient Relationship to Insured Coverage Start Date Coverage End Date [employer] [place] [id number] [address] [place], [place] [id number] Amadeo Gamez Self - patient is the insured 7 Medical (General) History Surgical History Surgery Date(Month/Year) *No Past Surgical History; 2016-10-20
--- OUTSIDE RECORDS SUMMARY | 2024-08-31 12:10 | XMS_ITS | Encounter Summary ---
Author Organization [facility] Address [address] [place] [address] Care Team Providers Care Electrical Power Station Technician Name Role Phone Tamela Smith MD Primary Care Provider [phone] Encounter Details Date Type Department Care Team (Late st Contact Info) Description 07/09/2024 Results Follow-Up Surgery [facility] [address] [address] Milagro Ramey MD [address] [address] Ultrasound head neck soft tissue Social History Tobacco Use Types Packs/Day Years Used Date Smoking Tobacco: Former Smokeless Tobacco: Current Chew Alcohol Use Standard Drinks/Week Comments Never 0 (1 standard drink = 0.6 oz pur e alcohol) occassionally Sex and Gender Information Value Date Recorded Sex Assigned at Male 07/02/2024 4:56 PM EDT Legal Sex Male 8:02 PM EST Gender Identity Male 07/02/2024 4:56 PM EDT Sexual Orientation Not on file documented as of this encounter Plan of Treatment Not on file documented as of this encounter Visit Diagnoses Not on filedocumented in this encounter Care Teams Electrical Power Station Technician Relationship Specialty Start Date End Date Tamela Smith MD [address] [place] [address] PCP - General Family Medicine 06/11/24 documented as of this encounter
--- OUTSIDE RECORDS SUMMARY | 2024-08-31 12:10 | XMS_ITS ---
Author Organization [facility] Address [address] [place] [address] Care Team Providers Care Cut Filer Name Role Phone Tamela Smith MD Primary Care Provider [phone] Active Problems Problem Noted Date Diagnosed Date Thyroid cancer 07/05/2024 Current Treatment and Therapy Plans No current plan information found. Past Treatment and Therapy Plans No past plan information found. Lifetime Dose Tracking * Chemical Lifetime Dose Automatic Entry Manual Entr y Radiation - DLP (mGy.cm) 1,394 DLP (mGy.cm) 1,394 DLP (mGy.cm) 0 DLP (mGy.cm)
[2024-08-31 12:13] VITALS: BP 127/88; PULSE 96; RESP 17; TEMP 36.7; O2SAT 99
== END 2024-08-31 12:42 | disposition short-term general hospital (02) ==
PROVIDERS: Emergency Provider Nurse Practitioner
DX: R42 Dizziness and giddiness (principal); E89.0 Postprocedural hypothyroidism; R73.03 Prediabetes; G62.9 Polyneuropathy, unspecified; M47.812 Spondylosis without myelopathy or radiculopathy, cervical region
CPT/HCPCS: 99213; G0463

== ENCOUNTER 2024-08-31 12:59 | Emergency (ER) | payer OTHER, SELFPAY ==
--- NOTE | ~2024-08-31 | XR_ITS ---
CHEST RADIOGRAPH, PA AND LATERAL CLINICAL HISTORY: lightheaded dizzy X 2 DAYS . COMPARISON: None available TECHNIQUE: PA and lateral views of the chest. FINDINGS The cardiomediastinal silhouette is unremarkable. The lungs are clear. IMPRESSION: No focal infiltrate or effusion. Reviewed, dictated and finalized at location A.
[2024-08-31 13:01] VITALS: BP 117/96; PULSE 97; RESP 16; TEMP 36.4; O2SAT 98
--- OUTSIDE RECORDS SUMMARY | 2024-08-31 13:05 | XMS_ITS | Clinical Summary ---
Author Organization [facility] Address [address] [place] [address] Care Team Providers Care Senior Production Manager Name Role Phone Tamela Smith MD Primary Care Provider Allergies Active Allergy Reactions Criticality Noted Date [...] EDT Office Visit Surgery Monisha BenitezChristiana [address] [address] Mario Ramey MD Thyroid cancer (HC) (Primary Dx) 07/25/2024 8:05 AM EDT Anesthesia Event [facility] [address] [place] [phone] Rolando Rose MD Ross, Cicely Angela, NP 07/25/2024 8:00 AM EDT - 07/25/2024 11:39 AM EDT Surgery [facility] [address] [place] [phone] Mario Ramey MD THYROIDECTOMY, TOTAL OR SUBTOTAL, WITH LIMITED NECK DISSECTION, FOR MALIGNANT NEOPLASM 07/25/2024 5:45 AM EDT - 07/26/2024 12:30 PM EDT Hospital Encounter [address] [address] Mario Ramey MD Discharge Disposition: Home or Self Care 07/25/2024 Travel 07/24/2024 10:00 AM EDT Pre-Admission Testing [facility] Pre-Admission Testing [address] [place] [phone] Mario Ramey MD Preop testing (Primary Dx) 07/23/2024 Travel 07/09/2024 Results Follow-Up Surgery Louis Benitez [address] [address] Mario Ramey MD Ultrasound head neck soft tissue 07/07/2024 10:45 AM EDT - 07/07/2024 11:59 PM EDT Hospital Encounter [facility] [address] [place] [phone] Mario Ramey MD Thyroid cancer (HC) Discharge Disposition: Home or Self Care 07/07/2024 Travel 07/05/2024 9:45 AM EDT Office Visit [address] [address] Mario Ramey MD Thyroid cancer (HC) (Primary Dx) 07/05/2024 Transcribed Order [address] [address] Mario Ramey MD Thyroid cancer (HC) (Primary Dx) 07/03/[address] [address] Mario Ramey MD 06/11/2024 Travel from Last [...] PATHOLOGY EXAM Routine 07/25/2024 11:26 AM EDT OK THYROIDECTOMY W LTD NCK DISECT 07/25/2024 8:05 AM EDT Thyroid cancer (HC) Special Needs CPT: 29187GMTW NUMBER [id number] AND SOAP 07/24 @ 10 AMBS DOS [...] - 10.3 mg/dL 07/26/2024 7:40 AM EDT [facility] Blood (Blood, Venous) Venipuncture / Unknown 07/26/2024 7:07 AM EDT 07/26/2024 7:14 AM EDT us Mario Ramey MD LAB BLOOD ORDERABLES Final Resu lt [facility] [address] [place], [place] [id number] * Platelet count (07/25/2024 3:17 PM EDT) Platelets 297 130 - 400 10*3/ L 07/25/2024 3:30 PM EDT [facility] Blood (Blood, Venous) Venipuncture / Unknown 07/25/2024 3:17 PM EDT 07/25/2024 3:25 PM EDT Mario Ramey MD LAB BLOOD ORDERABLES Final Resu lt Performing Organization Address [facility] Co de Phone Number [facility] [address] [place] [phone] * Extra PST [place] (07/25/2024 3:16 PM EDT) Pathologist [facility] EXTRA TUBE Hold for add-ons. 07/25/2024 5:00 PM EDT [facility] Comment:Auto resulted. Blood (Blood, Venous) Venipuncture / Unknown 07/25/2024 3:16 PM EDT 07/25/2024 3:26 PM EDT Mario Ramey MD LAB BLOOD ORDERABLES Final Resu lt Performing Organization Address [facility] Phone Number [facility] [address] [place] [address] * Surgical Pathology Exam (07/25/2024 11:26 AM EDT) Pathologist [facility] Case Report Surgical Pathology Case: [id number] Authorizing Provider: Mario Ramey MD Collected: 07/25/2024 1126 Ordering Location: [facility] Received: 07/25/2024 1351 [facility] Pathologist: Ravin Ayala MD Specimens: A) - Thyroid, Thyroid gland, double stitch santiago right superior pole, single stitch santiago left superior pole B) - Thyroid, Left strap muscle over tumor C) - Thyroid, Biopsy left central necl content 07/27/2024 12:51 PM EDT [facility] Final Diagnosis A. Thyroid gland, total [...] or malignancy identified. 07/27/2024 12:51 PM EDT [facility] at [address] Jean Claude Cotton concurring. 07/27/2024 12:51 PM EDT [facility] Clinical Information Thyroid cancer (HC) [C73] Thyroid cancer (HC) [C73] 07/27/2024 12:51 PM EDT [facility] Microscopic Description A.-C. Microscopic examination performed. 07/27/2024 12:51 PM EDT [facility] Gross Description A. The specimen is [...] Right lobe: Blue Left lobe: Green Isthmus: [place] Sectioning of the right lobe and isthmus reveals a kwan-brown unremarkable thyroid parenchyma. Sectioning of the left lobe, involving the middle-inferior pole is a 2.5 x 1.6 x 1.1 cm encapsulated kwan-brown to pink soft nodule that measures 0.1 cm from the green inked margin. The remaining left lobe parenchyma is kwan-brown and unremarkable. Maintenance Engineer Oil Field sections are submitted as follows: A1-A2: Right [...] into cassette C1. 07/27/2024 12:51 PM EDT [facility] Synoptic Report THYROID GLAND THYROID GLAND [...] Focal lymphocytic thyroiditis 07/27/2024 12:51 PM EDT [facility] Embedded Images 07/27/2024 12:51 PM EDT [facility] Tissue (Thyroid) 07/25/2024 11:26 AM EDT 07/25/2024 1:51 PM EDT Comment:Thyroid cancer (HC) [C73] Tissue (Thyroid) 07/25/2024 11:28 AM EDT 07/25/2024 1:51 PM EDT Comment:Thyroid cancer (HC) [C73] Tissue (Thyroid) 07/25/2024 11:29 AM EDT 07/25/2024 1:51 PM EDT Comment:Thyroid cancer (HC) [C73] Mario Ramey MD PATHOLOGY/CYTOLOGY ORDERABLES F inal Result Performing Organization Address City/[facility]/ZIP Co de Phone Number [facility] [address] [place] [address] * POCT Glucose (07/25/2024 6:45 AM EDT) [facility] POC Glucose 100 74 - 100 mg/dL 07/25/2024 6:46 AM EDT [facility] Sample Type VENOUS 07/25/2024 6:46 AM EDT [facility] Capillary Blood 07/25/2024 6 :45 AM EDT 07/25/2024 6:45 AM EDT Mario Ramey MD POINT OF CARE TEST ORDERABLES F inal Result Performing Organization Address City/[facility] Co de Phone Number [facility] [address] [place] [address] * (ABNORMAL) CBC auto differential (07/24/2024 11:21 AM EDT) [facility] WBC 5.90 3.40 - 10.80 10*3/ L 07/24/2024 11:54 AM EDT [facility] RBC 4.71 4.40 - 5.80 10*6/ L 07/24/2024 11:54 AM EDT [facility] Hemoglobin 13.7(L) 14.0 - 18.0 g/dL 07/24/2024 11:54 AM EDT [facility] Hematocrit 40.4 38.0 - 49.0 % 07/24/2024 11:54 AM EDT [facility] MCV 85.8 80.0 - 96.0 fL 07/24/2024 11:54 AM [facility] MCH 29.2 26.0 - 35.0 pg 07/24/2024 11:54 AM [facility] MCHC 34.0 32.0 - 36.0 g/dL 07/24/2024 11:54 AM [facility] RDW 14.3 11.5 - 15.0 % 07/24/2024 11:54 AM [facility] Platelets 278 130 - 400 10*3/ L 07/24/2024 11:54 AM [facility] MPV 7.6 6.0 - 9.5 fL 07/24/2024 11:54 AM [facility] Neutrophils Relative 50.0 37.0 - 80.0 % 07/24/2024 11:54 AM [facility] Lymphocytes Relative 23.2 14.0 - 65.0 % 07/24/2024 11:54 AM [facility] Monocytes Relative 9.6 0.0 - 11.0 % 07/24/2024 11:54 AM [facility] Eosinophils Relative 15.5(H) 0.0 - 6.0 % 07/24/2024 11:54 AM [facility] Basophils Relative 1.7 % 07/24/2024 11:54 AM [facility] Neutrophils Absolute 2.9 1.8 - 7.8 10*3/ L 07/24/2024 11:54 AM [facility] Lymphocytes Absolute 1.4 1.0 - 2.0 10*3/ L 07/24/2024 11:54 AM [facility] Monocytes Absolute 0.6 0.3 - 1.0 10*3/ L 07/24/2024 11:54 AM [facility] Eosinophils Absolute 0.9(H) 0.0 - 0.5 10*3/ L 07/24/2024 11:54 AM [facility] Basophils Absolute 0.1 10*3/uL 07/24/2024 11:54 AM [facility] Blood (Blood, Venous) Venipuncture / Unknown 07/24/2024 11:21 AM EDT 07/24/2024 11:46 AM EDT us Dyllan Patterson MD LAB BLOOD ORDERABLES Final Result [facility] [address] [place] [address] * (ABNORMAL) Basic metabolic panel (07/24/2024 11:21 AM EDT) Sodium 139 136 - 145 mmol/L 07/24/2024 12:26 PM EDT [facility] Potassium 4.3 3.5 - 5.1 mmol/L 07/24/2024 12:26 PM [facility] Chloride 106 98 - 107 mmol/L 07/24/2024 [facility] CO2 28 21 - 31 mmol/L 07/24/2024 12:26 PM T [facility] Glucose 89 74 - 100 mg/dL 07/24/2024 12:26 PM T [facility] BUN 16 7 - 25 mg/dL 07/24/2024 12:26 PM [facility] Creatinine 1.08(H) 0.30 - 1.00 mg/dL 07/24/2024 12:26 PM [facility] Calcium 8.9 8.6 - 10.3 mg/dL 07/24/2024 12:26 PM EDT [facility] Anion Gap 9 7 - 14 07/24/2024 12:26 PM [facility] BUN/Creatinine Ratio 15 12 - 20 07/24/2024 12:26 PM [facility] GFR CKD-EPI >60 >=60 mL/min/1.7 3sq m 07/24/2024 12:26 PM T [facility] Blood (Blood, Venous) Venipuncture / Unknown 07/24/2024 11:21 AM EDT 07/24/2024 11:46 AM EDT us Dyllan Patterson MD LAB BLOOD ORDERABLES Final Result [facility] [address] [place] [address] * Ultrasound head neck soft tissue (07/07/2024 [...] by size criteria. us Mario Ramey MD [facility] [place] ORDERABLES Final Result from Last [address] [place] [id number] [facility] Advance Directives * Full Code (Latest Code Status on File) Date Activated Date Inactivated Comments 07/25/2024 12:05 PM 07/26/2024 4:39 PM Care Teams Senior Production Manager Relationship Specialty Start Date End Date Tamela Smith MD [address] [place] [address] PCP - General Family Medicine 06/11/24
--- OUTSIDE RECORDS SUMMARY | 2024-08-31 13:05 | XMS_ITS | Encounter Summary ---
Author Organization [facility] Address [address] [place] [address] Care Team Providers Care Supervisor Rides Name Role Phone Tamela Smith MD Primary Care Provider [phone] Encounter Details Date Type Department Care Team (Late st Contact Info) Description 07/09/2024 Results Follow-Up Surgery [facility] [address] [address] Milagro Ramey MD [address] [address] Ultrasound head neck soft tissue [...] on filedocumented in this encounter Care Teams Supervisor Rides Relationship Specialty Start Date End Date Tamela Smith MD [address] [place] [address] PCP - General Family Medicine 06/11/24 documented as of this encounter
--- OUTSIDE RECORDS SUMMARY | 2024-08-31 13:05 | XMS_ITS ---
Author Organization [facility] Address [address] [place] [address] Care Team Providers Care Sausage Maker Name Role Phone Tamela Smith MD Primary Care Provider [phone] Active Problems Problem Noted Date Diagnosed Date Thyroid cancer 07/05/2024 Current Treatment and Therapy Plans No current plan information found. Past Treatment and Therapy Plans No past plan information found. Lifetime Dose Tracking * Chemical Lifetime Dose Automatic Entry Manual Entr y Radiation - DLP (mGy.cm) 1,394 DLP (mGy.cm) 1,394 DLP (mGy.cm) 0 DLP (mGy.cm)
--- NOTE | 2024-08-31 13:12 | ECG_ITS ---
Test Date: 2024-08-31 13:25:29 Measurements Intervals [place] Rate: 84 P: 78 VT: 135 QRS: 41 QRSD: 89 T: 54 QT: 346 QTc: 410 Interpretive Statements SINUS RHYTHM POSSIBLE LEFT ATRIAL ENLARGEMENT [-0.1mV P WAVE IN V1/V2] POSSIBLE RIGHT VENTRICULAR CONDUCTION DELAY [RSR (QR) IN V1/V2] No previous ECG available for comparison Electronically Signed On 08-31-2024 22:32:46 CDT by Pierre Jamil M.D.
[2024-08-31 13:34] LABS: Hematocrit 45.4 % (42.0-52.0); Hemoglobin 15.1 g/dL (14.0-18.0); Immature Granulocyte Percent A 0.4 % (0-0.5); Lymphocytes Absolute Auto 1.16 K/mm3 (0.9-3.2); Mean Corpuscular HGB Conc 33.3 g/dl (32-36); Mean Corpuscular Hemoglobin 29.4 pg (26-34); Mean Corpuscular Volume 88.3 fl (80-100); Nucleated Red Blood Cells Absolute Auto 0.000 K/mm3 (0.0-0.012); Nucleated Red Blood Cells Perc 0.0 % (0.0-0.2); Platelet Count Result 354 k/mm3 (150-375); Red Blood Count 5.14 M/mm3 (4.6-6.20); White Blood Count 6.9 K/mm3 (4.5-10.0)
[2024-08-31 13:49] LABS: Alanine Aminotransferase 24 U/L (6-50); Albumin Level 4.5 g/dL (3.5-5.1); Alkaline Phosphatase 83 U/L (38-126); Anion Gap 8 mmol/L (4-12); Aspartate Amino Transferase 25 U/L (17-59); Bilirubin,Total 0.6 mg/dL (0.2-1.3); Blood Urea Nitrogen 10 mg/dL (9-20); Calcium 9.3 mg/dL (8.4-10.2); Carbon Dioxide 24 mmol/L (22-30); Chloride 107 mmol/L (98-107); Estimated CRCL calculation 78 ml/min; Estimated Glomerular Filt Rate > 60; Glucose 124 mg/dL (65-110); Potassium 4.1 mmol/L (3.4-5.0); Sodium 139 mmol/L (137-145); Total Protein 8.0 g/dL (6.3-8.2)
--- OUTSIDE RECORDS SUMMARY | 2024-08-31 14:37 | XMS_ITS | Encounter Summary ---
Author Organization [facility] Address [address] [place] [address] Care Team Providers Care Sed High School Teacher Name Role Phone Tamela Smith MD Primary Care Provider [phone] Encounter Details Date Type Department Care Team (Late st Contact Info) Description 07/09/2024 Results Follow-Up Surgery [facility] [address] [phone] Milagro Ramey MD [address] [address] Ultrasound head neck soft tissue [...] on filedocumented in this encounter Care Teams Sed High School Teacher Relationship Specialty Start Date End Date Tamela Smith MD [address] [place] [address] PCP - General Family Medicine 06/11/24 documented as of this encounter
--- OUTSIDE RECORDS SUMMARY | 2024-08-31 14:37 | XMS_ITS ---
Author Organization [facility] Address [address] [place] [address] Care Team Providers Care Global Safety Officer Name Role Phone Tamela Smith MD Primary Care Provider [phone] Active Problems Problem Noted Date Diagnosed Date Thyroid cancer 07/05/2024 Current Treatment and Therapy Plans No current plan information found. Past Treatment and Therapy Plans No past plan information found. Lifetime Dose Tracking * Chemical Lifetime Dose Automatic Entry Manual Entr y Radiation - DLP (mGy.cm) 1,394 DLP (mGy.cm) 1,394 DLP (mGy.cm) 0 DLP (mGy.cm)
--- OUTSIDE RECORDS SUMMARY | 2024-08-31 14:37 | XMS_ITS | Clinical Summary ---
Author Organization [facility] Address [address] [place] [address] Care Team Providers Care Injection Operator Name Role Phone Tamela Smith MD Primary Care Provider [phone] Allergies Active Allergy Reactions Criticality Noted Date [...] EDT Office Visit Surgery Monisha BenitezChristiana [address] [phone] Mario Ramey MD Thyroid cancer (HC) (Primary Dx) 07/25/2024 8:05 AM EDT Anesthesia Event [facility] [address] [place] [phone] Rolando Rose MD Ross, Cicely Angela, NP 07/25/2024 8:00 AM EDT - 07/25/2024 11:39 AM EDT Surgery [facility] [address] [place] [phone] Mario Ramey MD THYROIDECTOMY, TOTAL OR SUBTOTAL, WITH LIMITED NECK DISSECTION, FOR MALIGNANT NEOPLASM 07/25/2024 5:45 AM EDT - 07/26/2024 12:30 PM EDT Hospital Encounter [address] [phone] Mario Ramey MD Discharge Disposition: Home or Self Care 07/25/2024 Travel 07/24/2024 10:00 AM EDT Pre-Admission Testing [facility] Pre-Admission Testing [address] [place] [phone] Mario Ramey MD Preop testing (Primary Dx) 07/23/2024 Travel 07/09/2024 Results Follow-Up Surgery Louis Benitez [address] [phone] Mario Ramey MD Ultrasound head neck soft tissue 07/07/2024 10:45 AM EDT - 07/07/2024 11:59 PM EDT Hospital Encounter [facility] [address] [place] [phone] Mario Ramey MD Thyroid cancer (HC) Discharge Disposition: Home or Self Care 07/07/2024 Travel 07/05/2024 9:45 AM EDT Office Visit [address] [phone] Mario Ramey MD Thyroid cancer (HC) (Primary Dx) 07/05/2024 Transcribed Order [address] [phone] Mario Ramey MD Thyroid cancer (HC) (Primary Dx) 07/03/[address] [phone] Mario Ramey MD 06/11/2024 Travel from Last [...] PATHOLOGY EXAM Routine 07/25/2024 11:26 AM EDT ID THYROIDECTOMY W LTD NCK DISECT 07/25/2024 8:05 AM EDT Thyroid cancer (HC) Special Needs CPT: [id number] NUMBER [id number] AND SOAP 07/24 @ 10 AMBS DOS [...] - 10.3 mg/dL 07/26/2024 7:40 AM EDT [facility] Blood (Blood, Venous) Venipuncture / Unknown 07/26/2024 7:07 AM EDT 07/26/2024 7:14 AM EDT us Mario Ramey MD LAB BLOOD ORDERABLES Final Resu lt [facility] [address] [place], [place] [id number] * Platelet count (07/25/2024 3:17 PM EDT) Platelets 297 130 - 400 10*3/ L 07/25/2024 3:30 PM EDT [facility] Blood (Blood, Venous) Venipuncture / Unknown 07/25/2024 3:17 PM EDT 07/25/2024 3:25 PM EDT Mario Ramey MD LAB BLOOD ORDERABLES Final Resu lt Performing Organization Address [facility] Co de Phone Number [facility] [address] [place] [phone] * Extra PST [place] (07/25/2024 3:16 PM EDT) Pathologist [facility] EXTRA TUBE Hold for add-ons. 07/25/2024 5:00 PM EDT [facility] Comment:Auto resulted. Blood (Blood, Venous) Venipuncture / Unknown 07/25/2024 3:16 PM EDT 07/25/2024 3:26 PM EDT Mario Ramey MD LAB BLOOD ORDERABLES Final Resu lt Performing Organization Address [facility] Phone Number [facility] [address] [place] [phone] * Surgical Pathology Exam (07/25/2024 11:26 AM EDT) Pathologist [facility] Case Report Surgical Pathology Case: [id number] Authorizing Provider: Mario Ramey MD Collected: 07/25/2024 1126 Ordering Location: [facility] Received: 07/25/2024 1351 [facility] Pathologist: Ravin Ayala MD Specimens: A) - Thyroid, Thyroid gland, double stitch santiago right superior pole, single stitch santiago left superior pole B) - Thyroid, Left strap muscle over tumor C) - Thyroid, Biopsy left central necl content 07/27/2024 12:51 PM EDT [facility] Final Diagnosis A. Thyroid [...] or malignancy identified. 07/27/2024 12:51 PM EDT [facility] at [address] Jean Claude Cotton concurring. 07/27/2024 12:51 PM EDT [facility] Clinical Information Thyroid cancer (HC) [C73] Thyroid cancer (HC) [C73] 07/27/2024 12:51 PM EDT [facility] Microscopic Description A.-C. Microscopic examination performed. 07/27/2024 12:51 PM EDT [facility] Gross Description A. The [...] Right lobe: Blue Left lobe: Green Isthmus: [place] Sectioning of the right lobe and isthmus reveals a kwan-brown unremarkable thyroid parenchyma. Sectioning of the left lobe, involving the middle-inferior pole is a 2.5 x 1.6 x 1.1 cm encapsulated kwan-brown to pink soft nodule that measures 0.1 cm from the green inked margin. The remaining left lobe parenchyma is kwan-brown and unremarkable. Access Specialist sections are submitted as follows: A1-A2: [...] into cassette C1. 07/27/2024 12:51 PM EDT [facility] Synoptic Report THYROID GLAND [...] Focal lymphocytic thyroiditis 07/27/2024 12:51 PM EDT [facility] Embedded Images 07/27/2024 12:51 PM EDT [facility] Tissue (Thyroid) 07/25/2024 11:26 AM EDT 07/25/2024 1:51 PM EDT Comment:Thyroid cancer (HC) [C73] Tissue (Thyroid) 07/25/2024 11:28 AM EDT 07/25/2024 1:51 PM EDT Comment:Thyroid cancer (HC) [C73] Tissue (Thyroid) 07/25/2024 11:29 AM EDT 07/25/2024 1:51 PM EDT Comment:Thyroid cancer (HC) [C73] Mario Ramey MD PATHOLOGY/CYTOLOGY ORDERABLES F inal Result Performing Organization Address City/[facility]/ZIP Co de Phone Number [facility] [address] [place] [address] * POCT Glucose (07/25/2024 6:45 AM EDT) [facility] POC Glucose 100 74 - 100 mg/dL 07/25/2024 6:46 AM EDT [facility] Sample Type VENOUS 07/25/2024 6:46 AM EDT [facility] Capillary Blood 07/25/2024 6 :45 AM EDT 07/25/2024 6:45 AM EDT Mario Ramey MD POINT OF CARE TEST ORDERABLES F inal Result Performing Organization Address City/[facility] Co de Phone Number [facility] [address] [place] [address] * (ABNORMAL) CBC auto differential (07/24/2024 11:21 AM EDT) [facility] WBC 5.90 3.40 - 10.80 10*3/ L 07/24/2024 11:54 AM EDT [facility] RBC 4.71 4.40 - 5.80 10*6/ L 07/24/2024 11:54 AM EDT [facility] Hemoglobin 13.7(L) 14.0 - 18.0 g/dL 07/24/2024 11:54 AM EDT [facility] Hematocrit 40.4 38.0 - 49.0 % 07/24/2024 11:54 AM EDT [facility] MCV 85.8 80.0 - 96.0 fL 07/24/2024 11:54 AM [facility] MCH 29.2 26.0 - 35.0 pg 07/24/2024 11:54 AM [facility] MCHC 34.0 32.0 - 36.0 g/dL 07/24/2024 11:54 AM [facility] RDW 14.3 11.5 - 15.0 % 07/24/2024 11:54 AM [facility] Platelets 278 130 - 400 10*3/ L 07/24/2024 11:54 AM [facility] MPV 7.6 6.0 - 9.5 fL 07/24/2024 11:54 AM [facility] Neutrophils Relative 50.0 37.0 - 80.0 % 07/24/2024 11:54 AM [facility] Lymphocytes Relative 23.2 14.0 - 65.0 % 07/24/2024 11:54 AM [facility] Monocytes Relative 9.6 0.0 - 11.0 % 07/24/2024 11:54 AM [facility] Eosinophils Relative 15.5(H) 0.0 - 6.0 % 07/24/2024 11:54 AM [facility] Basophils Relative 1.7 % 07/24/2024 11:54 AM [facility] Neutrophils Absolute 2.9 1.8 - 7.8 10*3/ L 07/24/2024 11:54 AM [facility] Lymphocytes Absolute 1.4 1.0 - 2.0 10*3/ L 07/24/2024 11:54 AM [facility] Monocytes Absolute 0.6 0.3 - 1.0 10*3/ L 07/24/2024 11:54 AM [facility] Eosinophils Absolute 0.9(H) 0.0 - 0.5 10*3/ L 07/24/2024 11:54 AM [facility] Basophils Absolute 0.1 10*3/uL 07/24/2024 11:54 AM [facility] Blood (Blood, Venous) Venipuncture / Unknown 07/24/2024 11:21 AM EDT 07/24/2024 11:46 AM EDT us Dyllan Patterson MD LAB BLOOD ORDERABLES Final Result [facility] [address] [place] [address] * (ABNORMAL) Basic metabolic panel (07/24/2024 11:21 AM EDT) Sodium 139 136 - 145 mmol/L 07/24/2024 12:26 PM EDT [facility] Potassium 4.3 3.5 - 5.1 mmol/L 07/24/2024 12:26 PM [facility] Chloride 106 98 - 107 mmol/L 07/24/2024 12:[facility] CO2 28 21 - 31 mmol/L 07/24/2024 12:26 PM T [facility] Glucose 89 74 - 100 mg/dL 07/24/2024 12:26 PM T [facility] BUN 16 7 - 25 mg/dL 07/24/2024 12:26 PM [facility] Creatinine 1.08(H) 0.30 - 1.00 mg/dL 07/24/2024 12:26 PM [facility] Calcium 8.9 8.6 - 10.3 mg/dL 07/24/2024 12:26 PM EDT [facility] Anion Gap 9 7 - 14 07/24/2024 12:26 PM [facility] BUN/Creatinine Ratio 15 12 - 20 07/24/2024 12:26 PM [facility] GFR CKD-EPI >60 >=60 mL/min/1.7 3sq m 07/24/2024 12:26 PM T [facility] Blood (Blood, Venous) Venipuncture / Unknown 07/24/2024 11:21 AM EDT 07/24/2024 11:46 AM EDT us Dyllan Patterson MD LAB BLOOD ORDERABLES Final Result [facility] [address] [place] [address] * Ultrasound head neck soft tissue (07/07/2024 [...] nodes, the majority of which demonstrate fatty insha and are not pathologically enlarged by size criteria. us Mario Ramey MD [facility] US ORDERABLES Final Result from Last [address] [place] [id number] [facility] Advance Directives * Full Code (Latest Code Status on File) Date Activated Date Inactivated Comments 07/25/2024 12:05 PM 07/26/2024 4:39 PM Care Teams Injection Operator Relationship Specialty Start Date End Date Tamela Smith MD [id number] [place] [id number] PCP - General Family Medicine 06/11/24
--- NOTE | 2024-08-31 14:39 | ED.GENADULT ---
HPI - General Adult General Chief complaint: Unspecified Stated complaint: lightheadedness, loose stools since 08/29 Time Seen by Provider: 08/31/24 14:25 History of Present Illness HPI narrative: Patient is a 53-year-old male who presents ER with diarrhea. Ongoing for 2 days. Four loose stools a day. Associated body aches and fever. He feels lightheaded when he goes from sitting standing. Went to urgent care and was referred here. No known sick contacts. History of thyroid cancer with thyroidectomy. Recently had the branded medication change but not the dosage change. Related Data Home Medications ?Medication ?Instructions ?Recorded ?Confirmed ?Last Taken ?Type duloxetine 60 mg capsule,delayed mg PO 08/31/24 Unknown History release levothyroxine 125 mcg tablet mcg 08/31/24 Unknown History methocarbamol 500 mg tablet mg 08/31/24 Unknown History Allergies Allergy/AdvReac Type Severity Reaction Status Date / Time Penicillins Allergy Unknown Unknown Verified 08/31/24 13:00 Review of Systems Review of Systems: All systems reviewed & are unremarkable except as noted in HPI and below Constitutional: Constitutional: Reports no additional constitutional complaints ENT: Reports system reviewed and no additional complaints, except as documented Cardiovascular: Cardiovascular: Reports no additional cardiovascular complaints Respiratory: Respiratory: Reports no additional respiratory complaints Gastrointestinal: Gastrointestinal: Reports no additional gastrointestinal complaints PMFSH Past Medical History Medical History (Updated 08/31/24 @ 14:44 by Rashid Vidal MD) History of thyroid cancer Surgical History Surgical History (Updated 08/31/24 @ 14:44 by Rashid Vidal MD) H/O thyroidectomy Exam Narrative: GENERAL: Well-appearing, well-nourished, and in no acute distress. HEAD: Normocephalic, atraumatic. ENT: Mucous membranes moist. CHEST: Clear to auscultation. No respiratory distress. HEART: Regular rate and rhythm. Normal peripheral pulses. ABDOMEN: Soft, nontender, nondistended. EXTREMITIES: Normal range of motion. No edema. SKIN: Warm, dry, no rash. NEURO: Alert and oriented x3. PSYCH: Normal mood and affect. Course Course Emergency Course: Patient discovered that he has to the make a co-pay and would like to leave. His blood work has already been performed and is normal. His chest x-ray by my interpretation shows no acute process. EKG within normal sinus rhythm. I was come performed viral testing but he would like to leave. It seems like has a viral gastroenteritis and it is appropriate for him to leave. Vital Signs Vital signs: Vital Signs Temperature 97.6 F 08/31/24 13:01 Pulse Rate 97 08/31/24 13:01 Respiratory Rate 16 08/31/24 13:01 Blood Pressure 117/96 H 08/31/24 13:01 Pulse Oximetry 98 08/31/24 13:01 Oxygen Delivery Room Air 08/31/24 13:01 Temperature 97.6 F 08/31/24 13:01 Pulse Rate 97 08/31/24 13:01 Respiratory Rate 16 08/31/24 13:01 Blood Pressure 117/96 H 08/31/24 13:01 Pulse Oximetry 98 08/31/24 13:01 Oxygen Delivery Room Air 08/31/24 13:01 Medical Decision Making Vital Signs Vital Signs: Vital Signs Temperature 97.6 F 08/31/24 13:01 Pulse Rate 97 08/31/24 13:01 Respiratory Rate 16 08/31/24 13:01 Blood Pressure 117/96 H 08/31/24 13:01 Pulse Oximetry 98 08/31/24 13:01 Oxygen Delivery Room Air 08/31/24 13:01 Temperature 97.6 F 08/31/24 13:01 Pulse Rate 97 08/31/24 13:01 Respiratory Rate 16 08/31/24 13:01 Blood Pressure 117/96 H 08/31/24 13:01 Pulse Oximetry 98 08/31/24 13:01 Oxygen Delivery Room Air 08/31/24 13:01 Lab Data 08/31/24 13:20 08/31/24 13:20 Labs: Lab Results 08/31/24 Range/Units 13:20 WBC 6.9 (4.5-10.0) K/mm3 RBC 5.14 (4.6-6.20) M/mm3 Hgb 15.1 (14.0-18.0) g/dL Hct 45.4 (42.0-52.0) % MCV 88.3 (80-100) fl MCH 29.4 (26-34) pg MCHC 33.3 (32-36) g/dl RDW 13.8 (11.5-14.5) % Plt Count 354 (150-375) k/mm3 MPV 9.4 (7.4-10.4) fl Immature Gran % (Auto) 0.4 (0-0.5) % Neut % (Auto) 73.7 H (45.5-73.1) % Lymph % (Auto) 16.9 L (18.3-44.2) % Meigs % (Auto) 7.1 (2.6-8.5) % Eos % (Auto) 0.4 (0-4.4) % Baso % (Auto) 1.5 H (0.2-1.2) % Lymph # (Auto) 1.16 (0.9-3.2) K/mm3 Meigs # (Auto) 0.5 (0.1-0.6) K/mm3 Eos # (Auto) 0.0 (0-0.3) K/mm3 Baso # (Auto) 0.1 (0.0-0.1) K/mm3 Abs Immat Gran (auto) 0.03 (0.00-0.031) K/mm3 Absolute Neuts (auto) 5.1 (1.3-6.7) K/mm3 Absolute Nucleated RBC 0.000 (0.0-0.012) K/mm3 Nucleated RBC % 0.0 (0.0-0.2) % Sodium 139 (137-145) mmol/L Potassium 4.1 (3.4-5.0) mmol/L Chloride 107 (98-107) mmol/L Carbon Dioxide 24 (22-30) mmol/L Anion Gap 8 (4-12) mmol/L BUN 10 (9-20) mg/dL Creatinine 1.04 (0.7-1.3) mg/dL Estim Creat Clear Calc 78 ml/min Estimated GFR > 60 (59 - ) Glucose 124 H (65-110) mg/dL Calcium 9.3 (8.4-10.2) mg/dL Total Bilirubin 0.6 (0.2-1.3) mg/dL AST 25 (17-59) U/L ALT 24 (6-50) U/L Alkaline Phosphatase 83 (38-126) U/L Total Protein 8.0 (6.3-8.2) g/dL Albumin 4.5 (3.5-5.1) g/dL Discharge Plan Discharge Clinical Impression: Gastroenteritis Patient Disposition: Home Condition: Stable Instructions: Gastroenteritis (ED) Additional Instructions: Please drink plenty of fluids at home. Return to the emergency department if you develop high fevers, have persistent severe abdominal pain, or have bloody stools or vomit, as these could be signs of a more serious medical emergency. Return to the emergency department if you are unable to keep down liquids because of severe nausea/vomiting. Patient Language: Citizen Of [place] Prescriptions: No Action methocarbamol 500 mg tablet levothyroxine 125 mcg tablet duloxetine 60 mg capsule,delayed release(DR/EC) PO Follow-up/Referrals: Terri Sanders DO [Physician] - 1 Week PHYSICIAN,BRANCH ACCOUNT MANAGER [Primary Care Provider] -
--- NOTE | 2024-08-31 14:49 | PC.NURSE ---
pt left without singing dc papers, angry about co-pay asked to be unhooked from monitors, ambulated out of Dept
[2024-08-31 15:36] LABS: Influenza A QL RT-PCR Negative (Negative); Influenza B QL RT-PCR Negative (Negative); RSV RNA, RT-PCR Negative (Negative); SARS-CoV-2 RNA PCR Negative (Negative)
== END 2024-08-31 15:31 | disposition home or self-care (01) ==
PROVIDERS: Emergency Provider Emergency Medicine
DX: K52.9 Noninfective gastroenteritis and colitis, unspecified (principal); Z20.822 Contact with and (suspected) exposure to COVID-19; E89.0 Postprocedural hypothyroidism; Z85.850 Personal history of malignant neoplasm of thyroid; R94.31 Abnormal electrocardiogram [ECG] [EKG]
CPT/HCPCS: 36415; 71046; 80053; 85025; 87637; 93005; 96360; 99284

== ENCOUNTER 2024-09-05 11:27 | Emergency (ER) | payer OTHER, SELFPAY ==
[2024-09-05 11:35] VITALS: BP 140/90; PULSE 98; RESP 16; TEMP 37; O2SAT 100
--- NOTE | 2024-09-05 11:56 | ED_ITS ---
HPI - Abdominal Pain General Chief Complaint: Abdominal Pain Stated Complaint: Stomach Problems Time Seen by Provider: 09/05/24 11:30 Source: patient Mode of arrival: ambulatory Limitations: no limitations History of Present Illness HPI narrative: patient is a 53-year-old male presenting for a work note. Patient reports a virus for the last 1 week, causing him to miss work. Patient states that his symptoms have resolved and he would like to return to work but cannot do so without a note. He denies any complaints or concerns today. Related Data Home Medications ?Medication ?Instructions ?Recorded ?Confirmed ?Last Taken ?Type duloxetine 60 mg capsule,delayed mg PO 08/31/24 Unknown History release levothyroxine 125 mcg tablet mcg 08/31/24 Unknown History methocarbamol 500 mg tablet mg 08/31/24 Unknown History Allergies Allergy/AdvReac Type Severity Reaction Status Date / Time Penicillins Allergy Unknown Unknown Verified 09/05/24 11:42 Review of Systems Review of Systems: CONSTITUTIONAL: Denies body aches, fever, chills, or sweats. EYES: Denies visual changes, redness, or discharge. ENT: Denies rhinorrhea, congestion, sore throat, or otalgia. CARDIOVASCULAR: Denies chest pain, palpitations, or edema. RESPIRATORY: Denies cough or dyspnea. GASTROINTESTINAL: Denies abdominal pain, nausea, vomiting, or diarrhea. GENITOURINARY: Denies dysuria or hematuria. SKIN: Denies rash, itching, or wounds. MUSCULOSKELETAL: Denies back pain, joint pain, or myalgia. NEUROLOGIC: Denies headache, numbness, tingling, or weakness. PSYCH: Denies depression or anxiety. All systems reviewed & are unremarkable except as noted in HPI and below PMFSH Past Medical History Medical History History of thyroid cancer Surgical History Surgical History H/O thyroidectomy Exam Narrative: GENERAL: Well-appearing, well-nourished, and in no acute distress. HEAD: Normocephalic, atraumatic. EYES: EOMI. No redness or drainage. Conjunctivae normal. ENT: Mucous membranes pink and moist. Nares clear. No rhinorrhea. TMs normal bilaterally. Throat normal. Uvula midline. NECK: Normal AROM. Supple. No lymphadenopathy. CHEST: No respiratory distress. Clear to auscultation. HEART: Regular rate and rhythm. No murmur appreciated. Normal peripheral pulses. ABDOMEN: Soft, nontender, nondistended, normal active bowel sounds. MUSCULOSKELETAL: No bony tenderness. EXTREMITIES: Normal range of motion. No edema. SKIN: Warm, dry, no rash. Capillary refill normal. Normal skin turgor. NEURO: No focal deficits. Alert and oriented x3. Gait steady. PSYCH: Normal affect. No signs of depression or anxiety. Course Course Level of Care: Express Care Visit Vital Signs Vital signs: Vital Signs Temperature 98.6 F 09/05/24 11:35 Pulse Rate 98 09/05/24 11:35 Respiratory Rate 16 09/05/24 11:35 Blood Pressure 140/90 09/05/24 11:35 Pulse Oximetry 100 09/05/24 11:35 Oxygen Delivery Room Air 09/05/24 11:35 Temperature 98.6 F 09/05/24 11:35 Pulse Rate 98 09/05/24 11:35 Respiratory Rate 16 09/05/24 11:35 Blood Pressure 140/90 09/05/24 11:35 Pulse Oximetry 100 09/05/24 11:35 Oxygen Delivery Room Air 09/05/24 11:35 Discharge Plan Discharge Clinical Impression: Encounter to obtain excuse from work Patient Disposition: Home Condition: Stable Additional Instructions: Go straight to ER should your symptoms become worse or should any new symptoms develop Patient Language: [place] Prescriptions: No Action methocarbamol 500 mg tablet levothyroxine 125 mcg tablet duloxetine 60 mg capsule,delayed release(DR/EC) PO Follow-up/Referrals: PHYSICIAN,CLINICAL OUTCOMES MANAGER [Primary Care Provider] - 09/05/24 Stand Alone Forms: Work/School Release IP Time of Disposition: 12:07
== END 2024-09-05 12:14 | disposition home or self-care (01) ==
PROVIDERS: Emergency Provider Registered Nurse
DX: Z02.79 Encounter for issue of other medical certificate (principal); Z85.850 Personal history of malignant neoplasm of thyroid; E89.0 Postprocedural hypothyroidism
CPT/HCPCS: 99211; G0463